=== PATIENT | female | born 1945 | race Caucasian/White ===

== ENCOUNTER 2017-06-05 10:47 | Inpatient (IN) | payer MEDICARE, OTHER ==
[2017-06-05] MEDS ORDERED: Ondansetron 4 MG/2 ML SDV IV PRN (11:32)
[2017-06-05] MEDS ORDERED: Sodium Chloride 0.9% 5 ML Syringe FLUSH PRN (11:32)
[2017-06-05] MEDS ORDERED: Nystatin Topical Powder 15 GM Bottle TOP PRN (11:39)
[2017-06-05] MEDS ORDERED: Clobetasol 0.05% Crm 30 GM Tube TOP PRN (11:39)
[2017-06-05] MEDS ORDERED: Nystatin Crm 15 GM Tube TOP PRN (11:39)
[2017-06-05] MEDS ORDERED: Docusate Sodium 100 MG Cap PO PRN (11:39)
[2017-06-05] MEDS: Acetaminophen 325 MG Tab PO PRN ×2 (12:02→18:35)
[2017-06-05 12:45] LABS: CHLORIDE,CL 99 mmol/L (98-115); SODIUM,NA 136 mmol/L (136-145)
[2017-06-05] MEDS: Sodium Chloride 0.9% 1,000 ML IV SCH (14:01)
[2017-06-05] MEDS: traMADol 50 MG Tab PO PRN (18:33)
[2017-06-05] MEDS: carBAMazepine 200 MG Tab PO SCH (21:11)
[2017-06-06] MEDS: Sodium Chloride 0.9% 1,000 ML IV SCH ×3 (00:18→19:34)
[2017-06-06] MEDS: Acetaminophen 325 MG Tab PO PRN ×3 (00:23→18:07)
[2017-06-06] MEDS: traMADol 50 MG Tab PO PRN (00:24)
[2017-06-06] MEDS: Clopidogrel 75 MG Tab PO SCH (08:07)
[2017-06-06] MEDS: Folic Acid 1 MG Tab PO SCH (08:08)
[2017-06-06] MEDS: Levothyroxine 88 MCG Tab PO SCH (08:08)
[2017-06-06] MEDS: predniSONE 5 MG Tab PO SCH (08:08)
[2017-06-06] MEDS: Escitalopram 10 MG Tab PO SCH (08:08)
[2017-06-06] MEDS: Aspirin 81 MG Tab.EC PO SCH (08:08)
[2017-06-06] MEDS: carBAMazepine 200 MG Tab PO SCH ×2 (08:08→21:08)
[2017-06-06] MEDS: Cholecalciferol (Vitamin D3) 1,000 Unit Tab PO SCH (08:08)
[2017-06-06 08:13] LABS: CHLORIDE,CL 102 mmol/L (98-115); SODIUM,NA 138 mmol/L (136-145)
[2017-06-06] MEDS ORDERED: Levothyroxine 75 MCG Tab PO SCH (09:00)
[2017-06-07] MEDS: traMADol 50 MG Tab PO PRN (01:38)
[2017-06-07] MEDS: Acetaminophen 325 MG Tab PO PRN (01:39)
[2017-06-07] MEDS: Sodium Chloride 0.9% 1,000 ML IV SCH ×2 (05:35→15:13)
[2017-06-07] MEDS: carBAMazepine 200 MG Tab PO SCH ×2 (08:22→21:14)
[2017-06-07] MEDS: Folic Acid 1 MG Tab PO SCH (08:24)
[2017-06-07] MEDS: Aspirin 81 MG Tab.EC PO SCH (08:24)
[2017-06-07] MEDS: Escitalopram 10 MG Tab PO SCH (08:24)
[2017-06-07] MEDS: Levothyroxine 88 MCG Tab PO SCH (08:24)
[2017-06-07] MEDS: Cholecalciferol (Vitamin D3) 1,000 Unit Tab PO SCH (08:25)
[2017-06-07] MEDS: predniSONE 5 MG Tab PO SCH (08:25)
[2017-06-07] MEDS: Clopidogrel 75 MG Tab PO SCH (08:25)
--- NOTE | 2017-06-07 09:05 | PN ---
06/06/2017 PATIENT NAME: MERYL LANDIN SUBJECTIVE: This is a 72-year-old female who was admitted to the hospital inpatient yesterday, June 05, 2017, for a viral gastroenteritis with dehydration and weakness. Influenza A and B were negative yesterday. CBC showed a normal white blood cell count. There was a mild shift of neutrophils, however, with a normal white count, this is likely insignificant. Complete metabolic panel showed an elevated glucose. All other values were normal. The patient is feeling somewhat better and tolerating a clear liquid diet, however, she still feels very weak. She has been running a low-grade temp of 99 to 100. She has been receiving IV hydration. No antibiotics were started since she did have a normal white blood cell count and antivirals were also withheld due to the fact that she was negative for influenza A and B. LABORATORY DATA: Lab results from today: Hemoglobin dropped a bit to 11.5, most likely due to hydration. White blood cell count continues to be normal. Her chemistries showed a low calcium of 7.6 as well as a low albumin of 2.58. The corrected calcium is 8.7, which is normal. BUN and creatinine continue to be normal with a GFR of greater than 60. Sodium and potassium are within normal limits. OBJECTIVE: VITAL SIGNS: I will insert the vital signs later. GENERAL: She still does appear weak and pale. SKIN: Warm and dry to touch. CARDIAC: Reveals S1 and S2 to be normal. Rate and rhythm are regular. No murmur, click, or gallop is auscultated. LUNGS: She has some diffuse rhonchi throughout. She does have a history of interstitial cystitis. IMAGING: Chest x-ray showed just mild edema. IMPRESSION: Viral gastroenteritis with slow improvement. We will advance her diet to a soft diet and repeat labs in the morning. She will continue on IV fluids of normal saline at 100 mL an hour. We will consider discharge tomorrow if she is feeling better. Dr. Lakia Cornelius will see her tomorrow on inpatient rounds. /[id number]/MODL
--- NOTE | 2017-06-07 09:05 | PCM.PN ---
- General Info Date of Service: 06/07/17 Admission Dx/Problem (Free Text): Dehydration secondary to gastroenteritis. - Review of Systems Systems Review Comment:: Kody is seen today on inpatient rounds. She was admitted to inpatient on from clinic due to dehydration secondary to gastroenteritis. She had been ill for nearly a week, initially with fevers (low grade) and feeling "run down" . She then developed severe vomiting and diarrhea and came to the clinic for evaluation. Labs were largely unremarkable, CXR negative. She states that she has a MCKINLEY on the left side, she is concerned it is her trigeminal neuralgia "acting up" and is wondering about increasing the dose of this medication. She has not had any more nausea since her initial dose of zofran and has not had vomiting ro diarrhea. She still feels run down but better than she felt at admission. - Patient Data Vitals - Most Recent: Last Vital Signs Temp 99.0 F 06/07/17 06:39 Pulse 74 06/07/17 06:39 Resp 22 H 06/07/17 06:39 BP 114/59 L 06/07/17 06:39 Pulse Ox 96 06/07/17 06:39 Weight - Most Recent: 179 lb 8 oz I&O - Last 24 Hours: Intake & Output 06/06/17 06/07/17 06/07/17 22:59 06:59 14:59 Intake Total 1490 935 Output Total 1000 1725 Balance 490 -790 Reilly Results Last 24 Hours: Microbiology 06/05/17 14:50 Aerobic Blood Culture - Preliminary Blood - Venous - Lab Draw NO GROWTH AFTER 1 DAY Anaerobic Blood Culture - Preliminary NO GROWTH AFTER 1 DAY 06/05/17 12:05 Aerobic Blood Culture - Preliminary Blood - Venous NO GROWTH AFTER 1 DAY Anaerobic Blood Culture - Preliminary NO GROWTH AFTER 1 DAY Med Orders - Current: Current Medications Acetaminophen (Tylenol) 325 - 650 mg PO Q4H PRN PRN Reason: Pain/Fever Last Admin: 06/07/17 01:39 Dose: 650 mg Aspirin (Halfprin) 81 mg PO DAILY [facility] Last Admin: 06/07/17 08:24 Dose: 81 mg Carbamazepine (Tegretol Tab) 400 mg PO BID [facility] Cholecalciferol (Vitamin D3) 4,000 units PO DAILY [facility] Last Admin: 06/07/17 08:25 Dose: 4,000 units Clobetasol Propionate (Clobetasol 0.05%) 0 gm TOP BID PRN PRN Reason: Itching Clopidogrel Bisulfate (Plavix) 75 mg PO DAILY [facility] Last Admin: 06/07/17 08:25 Dose: 75 mg Docusate Sodium (Colace) 100 mg PO BEDTIME PRN PRN Reason: Constipation Escitalopram Oxalate (Lexapro) 10 mg PO DAILY [facility] Last Admin: 06/07/17 08:24 Dose: 10 mg Folic Acid (Folic Acid) 1 mg PO DAILY [facility] Last Admin: 06/07/17 08:24 Dose: 1 mg Sodium Chloride (Normal Saline) 1,000 mls @ 100 mls/hr IV ASDIRECTED [facility] Last Admin: 06/07/17 05:35 Dose: 100 mls/hr Levothyroxine Sodium (Synthroid) 88 mcg PO ACBREAKFAST [facility] Last Admin: 06/07/17 08:24 Dose: 88 mcg Nystatin (Nystatin Crm) 0 gm TOP TID PRN PRN Reason: yeast Nystatin (Nystop) 0 gm TOP TID PRN PRN Reason: Itching Ondansetron HCl (Zofran) 4 mg IV Q6H PRN PRN Reason: Nausea/Vomiting Last Admin: 06/05/17 11:30 Dose: 4 mg Prednisone (Prednisone) 5 mg PO DAILY [facility] Last Admin: 06/07/17 08:25 Dose: 5 mg Ramelteon (Rozerem) 8 mg PO BEDTIME PRN PRN Reason: Sleep Sodium Chloride (Syrex Flush) 5 ml FLUSH Q8HR PRN PRN Reason: Keep Vein Open Tramadol HCl (Ultram) 50 - 100 mg PO Q6H PRN PRN Reason: Pain Last Admin: 06/07/17 01:38 Dose: 50 mg Discontinued Medications Carbamazepine (Tegretol Tab) 300 mg PO BID [facility] Last Admin: 06/07/17 08:22 Dose: 300 mg Levothyroxine Sodium (Levothyroxine) 88 mcg PO DAILY [facility] - Exam General: Alert, Oriented, Cooperative, Other (She appears tired.) Lungs: Rales (Bilateral bases.) Cardiovascular: Regular Rate, Regular Rhythm, No Murmurs - Problem List & Annotations (1) Gastroenteritis SNOMED Code(s): 76784308 Code(s): K52.9 - NONINFECTIVE GASTROENTERITIS AND COLITIS, UNSPECIFIED Status: Acute Current Visit: Yes (2) Dehydration SNOMED Code(s): 26413147 Code(s): E86.0 - DEHYDRATION Status: Acute Current Visit: Yes (3) Trigeminal neuralgia of left side of face SNOMED Code(s): 46447913 Code(s): G50.0 - TRIGEMINAL NEURALGIA Status: Acute Current Visit: Yes (4) Rheumatoid arthritis SNOMED Code(s): 84153895 Code(s): M06.9 - RHEUMATOID ARTHRITIS, UNSPECIFIED Status: Acute Current Visit: Yes - Problem List Review Problem List Initiated/Reviewed/Updated: Yes - My Orders Last 24 Hours: My Active Orders 06/07/17 09:00 carBAMazepine [TEGretol Tab] 400 mg PO BID - Assessment Assessment:: Gastroenteritis Dehydration Trigeminal neuralgia, left RA - Plan Plan:: Gastroenteritis. Continue IV fluids. Zofran PRN Dehydration. See above. Trigeminal neuralgia, left. Increase Tegretol to 400 mg PO BID. RA. Continue home meds. Recommend one more overnight stay and possible discharge to home in AM (06/08/17) .
--- NOTE | 2017-06-07 09:09 | PN ---
06/06/2017PATIENT NAME: MERYL LANDIN ADDENDUM PHYSICAL EXAMINATION: VITAL SIGNS: Temperature is 97.4, pulse is 74, respirations 16, blood pressure 110/67, oxygen saturation is 95% on 1 L of oxygen. /[id number]/MODL
[2017-06-07] MEDS ORDERED: carBAMazepine 200 MG Tab PO ONE (09:15)
[2017-06-08] MEDS: Sodium Chloride 0.9% 1,000 ML IV SCH (01:15)
[2017-06-08 05:59] VITALS: BP 150/77
[2017-06-08] MEDS: Acetaminophen 325 MG Tab PO PRN (06:07)
[2017-06-08] MEDS: Levothyroxine 88 MCG Tab PO SCH (07:51)
[2017-06-08 07:55] LABS: CHLORIDE,CL 105 mmol/L (98-115); SODIUM,NA 140 mmol/L (136-145)
[2017-06-08] MEDS: carBAMazepine 200 MG Tab PO SCH (10:13)
[2017-06-08] MEDS: Clopidogrel 75 MG Tab PO SCH (10:14)
[2017-06-08] MEDS: Escitalopram 10 MG Tab PO SCH (10:14)
[2017-06-08] MEDS: Cholecalciferol (Vitamin D3) 1,000 Unit Tab PO SCH (10:14)
[2017-06-08] MEDS: predniSONE 5 MG Tab PO SCH (10:14)
[2017-06-08] MEDS: Aspirin 81 MG Tab.EC PO SCH (10:14)
[2017-06-08] MEDS: Folic Acid 1 MG Tab PO SCH (10:14)
--- NOTE | 2017-06-10 08:24 | DISCH ---
This is a 72-year-old female who was admitted on 06/05/2017 from the [facility] for viral gastroenteritis with dehydration. She received one dose of Zofran which cleared her nausea. Admission labs were basically unremarkable. On her 2nd hospital day, 06/06/2017, she was found to have a low calcium, which corrected with her albumin. Yesterday, she did not have lab work. She continued to have her diet advanced and continued on IV fluids and has improved clinically and is ready for discharge. Lab work today showed a normal white count, it has been normal the entire time she has been hospitalized. Creatinine is low at 0.48 clinically insignificant. Glucose is 117. Calcium is 8.2 today, which is improved from 7.6 the other day. We did not get an albumin today, however, I am sure this calcium corrects with that. Her nutritional status has improved considerably since her admission. We did hold her hydrochlorothiazide due to the fact that one week prior to admission, she was hypokalemic and we did replace that orally, which improved her potassium within a normal range. We have held it in the hospital due to hypotension, however, now that she is rehydrated, her blood pressure has been creeping up to 168/87, 150/77. She will resume taking the hydrochlorothiazide. PHYSICAL EXAMINATION: VITAL SIGNS: On exam today, vital signs are temperature of 99.2, pulse 90, respirations 14, blood pressure 150/77. Her O2 saturation is 91%. She does use oxygen on a p.r.n. basis at home. SKIN: Warm and dry to touch. CARDIAC: Reveals S1, S2 to be normal. Rate and rhythm are regular. No murmur, click, or gallop is auscultated. LUNGS: She does have some coarse rhonchi throughout her lungs, however, this is probably secondary to interstitial cystitis. ABDOMEN: Soft, nontender. Bowel sounds present in all four quadrants. EXTREMITIES: There is no pedal edema. IMPRESSION: 1. Viral gastroenteritis. This is improved to the point where the patient is able to be discharged home. 2. Trigeminal neuralgia. She did complain of increased pain of the left-sided trigeminal neuralgia. Her PCP, Lakia Cornelius saw her yesterday on rounds and did increase her Tegretol, carbamazepine (to 400 mg b.i.d.). This change has been communicated to the pharmacy. 3. Hypertension. Hydrochlorothiazide was held due to hypotension, however, this will be restarted and has been communicated in her discharge instructions. 4. Rheumatoid arthritis. This is stable on daily steroid therapy. She is also on folic acid supplementation. She will follow up in the clinic next week. She did request a refill on her Cheratussin, which she was taking for a cough. This was communicated to the pharmacy and they will actually deliver it to her home today. She will call the clinic or hospital if she has any problems prior to her followup appointment. /[id number]/MODL
== END 2017-06-08 12:40 | disposition home or self-care (01) | DRG 392 ==
LOC: KA.MS 10:47
DX: A08.4 Viral intestinal infection, unspecified (principal); J84.9 Interstitial pulmonary disease, unspecified; E86.0 Dehydration; G50.0 Trigeminal neuralgia; I10 Essential (primary) hypertension; M06.9 Rheumatoid arthritis, unspecified; E03.9 Hypothyroidism, unspecified; F32.9 Major depressive disorder, single episode, unspecified; E55.9 Vitamin D deficiency, unspecified; Z88.8 Allergy status to other drugs, medicaments and biological substances; Z79.899 Other long term (current) drug therapy
CPT/HCPCS: 36415; 71046; 80048; 80053; 85025; 87040; 87804; A9270-GY; J2405; J7030

== ENCOUNTER 2023-04-11 06:18 | Inpatient (IN) | payer MEDICARE, OTHER ==
[2023-04-11 08:05] LABS: INFLUENZA A NAA NEGATIVE (NEGATIVE); INFLUENZA B NAA NEGATIVE (NEGATIVE); RESPIRATORY SYNCYTIAL VIR NAA NEGATIVE (NEGATIVE)
[2023-04-11 08:06] LABS: CORONAVIRUS COVID-19 NAA POSITIVE (NEGATIVE)
[2023-04-11] MEDS ORDERED: Acetaminophen 500 MG Tab PO ONE (08:39)
[2023-04-11 09:21] LABS: BASOPHILS ABSOLUTE AUTO 0.03 10^3/uL (0.00-0.10); BASOPHILS PERCENT AUTO 0.3 % (0.0-1.0); EOSINOPHILS ABSOLUTE AUTO 0.03 10^3/uL (0.10-0.30); EOSINOPHILS PERCENT AUTO 0.3 % (1.0-3.0); HEMATOCRIT 43.1 % (37.0-47.0); HEMOGLOBIN 14.2 g/dL (12.0-16.0); IMMATURE GRAN ABSOLUTE AUTO 0.02 10^3/uL (0.00-0.50); IMMATURE GRAN PERCENT AUTO 0.2 % (0.0-5.0); LYMPHOCYTES ABSOLUTE AUTO 1.16 10^3/uL (1.00-4.00); LYMPHOCYTES PERCENT AUTO 12.5 % (20.0-40.0); MEAN CORPUSCULAR HEMOGLOBIN 29.6 pg (27.0-31.0); MEAN CORPUSCULAR HGB CONC 32.9 g/dL (32.0-36.0); MEAN PLATELET VOLUME 11.2 fL (7.4-10.4); MONOCYTES ABSOLUTE AUTO 1.36 10^3/uL (0.10-0.80); MONOCYTES PERCENT AUTO 14.6 % (2.0-8.0); NEUTROPHILS PERCENT AUTO 72.1 % (50.0-70.0); PLATELET COUNT,PLT 170 10^3/uL (150-400); RED BLOOD CELL COUNT 4.79 10^6/uL (3.80-5.50); RED CELL DISTRIBUTION WIDTH 12.7 % (11.5-14.5)
[2023-04-11 09:36] LABS: ALBUMIN 3.11 g/dL (3.40-5.00); ANION GAP 12.7 mmol/L (5-15); BILIRUBIN TOTAL 0.3 mg/dL (0.2-1.0); CALCIUM 8.2 mg/dL (8.7-10.3); CARBON DIOXIDE,CO2 30.3 mmol/L (21.0-32.0); CREATININE 0.53 mg/dL (0.51-1.17); EST CRCL DRUG DOSING (CG) 70.03 mL/min; PROTEIN TOTAL,TP 6.5 g/dL (6.4-8.2)
[2023-04-11] MEDS ORDERED: traMADol 50 MG Tab PO PRN (12:30)
[2023-04-11] MEDS ORDERED: Albuterol/Ipratropium 3.0-0.5 MG/3 ML Neb Soln NEB PRN (12:30)
[2023-04-11] MEDS ORDERED: Ondansetron 4 MG/2 ML SDV IV PRN (12:30)
[2023-04-11] MEDS ORDERED: NS with KCl 40mEq 500 ML IV SCH (13:00)
[2023-04-11] MEDS ORDERED: REMDESIVIR 200 MG in Sodium Chloride 0.9% 100 ML IV ONE ×2 (13:00→13:55)
[2023-04-11] MEDS ORDERED: Omeprazole 20 MG Cap.CR PO SCH (13:00)
[2023-04-11] MEDS ORDERED: Potassium Chloride 20 MEQ Tab.ER PO ONE (13:00)
[2023-04-11] MEDS: Dexamethasone 4 MG/ML 5 ML MDV IVPUSH SCH (13:47)
[2023-04-11] MEDS: Levothyroxine 25 MCG Tab PO SCH (13:50)
[2023-04-11] MEDS: metFORMIN 500 MG Tab PO SCH ×2 (13:51→17:56)
[2023-04-11] MEDS: Levothyroxine 100 MCG Tab PO SCH (13:51)
[2023-04-11] MEDS: Clopidogrel 75 MG Tab PO SCH (13:51)
[2023-04-11] MEDS: Aspirin 81 MG Tab.EC PO SCH (13:52)
[2023-04-11] MEDS: Escitalopram 10 MG Tab PO SCH (13:53)
[2023-04-11] MEDS: Omeprazole 20 MG Cap.CR PO SCH (13:57)
[2023-04-11] MEDS: Enoxaparin 40 MG/0.4 ML Syringe SUBCUT SCH (14:01)
[2023-04-11] MEDS ORDERED: OXCARBAZEPINE 300 MG PO SCH (21:00)
[2023-04-12] MEDS: Levothyroxine 100 MCG Tab PO SCH ×2 (06:21→06:32)
[2023-04-12] MEDS: Levothyroxine 25 MCG Tab PO SCH ×2 (06:22→06:32)
[2023-04-12 07:18] LABS: BASOPHILS ABSOLUTE AUTO 0.02 10^3/uL (0.00-0.10); BASOPHILS PERCENT AUTO 0.2 % (0.0-1.0); HEMATOCRIT 42.2 % (37.0-47.0); HEMOGLOBIN 13.8 g/dL (12.0-16.0); IMMATURE GRAN ABSOLUTE AUTO 0.04 10^3/uL (0.00-0.50); IMMATURE GRAN PERCENT AUTO 0.4 % (0.0-5.0); LYMPHOCYTES ABSOLUTE AUTO 1.25 10^3/uL (1.00-4.00); LYMPHOCYTES PERCENT AUTO 11.4 % (20.0-40.0); MEAN CORPUSCULAR HEMOGLOBIN 30.1 pg (27.0-31.0); MEAN CORPUSCULAR HGB CONC 32.7 g/dL (32.0-36.0); MEAN CORPUSCULAR VOLUME 91.9 fL (82.0-92.0); MEAN PLATELET VOLUME 11.2 fL (7.4-10.4); MONOCYTES ABSOLUTE AUTO 1.28 10^3/uL (0.10-0.80); MONOCYTES PERCENT AUTO 11.7 % (2.0-8.0); NEUTROPHILS ABSOLUTE AUTO 8.33 10^3/uL (2.50-7.00); NEUTROPHILS PERCENT AUTO 76.3 % (50.0-70.0); PLATELET COUNT,PLT 173 10^3/uL (150-400); RED BLOOD CELL COUNT 4.59 10^6/uL (3.80-5.50); RED CELL DISTRIBUTION WIDTH 12.8 % (11.5-14.5); WHITE BLOOD CELL COUNT,WBC 10.92 10^3/uL (5.00-10.00)
[2023-04-12 07:26] LABS: ALBUMIN 2.96 g/dL (3.40-5.00); ANION GAP 9.7 mmol/L (5-15); BILIRUBIN TOTAL 0.2 mg/dL (0.2-1.0); CALCIUM 8.8 mg/dL (8.7-10.3); CARBON DIOXIDE,CO2 31.5 mmol/L (21.0-32.0); CREATININE 0.61 mg/dL (0.51-1.17); EST CRCL DRUG DOSING (CG) 60.85 mL/min; POTASSIUM,K 4.2 mmol/L (3.5-5.1); PROTEIN TOTAL,TP 6.4 g/dL (6.4-8.2)
[2023-04-12] MEDS: Omeprazole 20 MG Cap.CR PO SCH (08:04)
[2023-04-12] MEDS: Dexamethasone 4 MG/ML 5 ML MDV IVPUSH SCH (08:04)
[2023-04-12] MEDS: Clopidogrel 75 MG Tab PO SCH (08:05)
[2023-04-12] MEDS: metFORMIN 500 MG Tab PO SCH ×2 (08:05→17:57)
[2023-04-12] MEDS: Aspirin 81 MG Tab.EC PO SCH (08:05)
[2023-04-12] MEDS: Escitalopram 10 MG Tab PO SCH (08:05)
[2023-04-12] MEDS: Acetaminophen 325 MG Tab PO PRN ×2 (08:11→21:50)
[2023-04-12] MEDS: REMDESIVIR 100 MG in Sodium Chloride 0.9% 100 ML IV SCH (13:01)
[2023-04-12] MEDS: Enoxaparin 40 MG/0.4 ML Syringe SUBCUT SCH (13:01)
[2023-04-13] MEDS: Levothyroxine 100 MCG Tab PO SCH ×2 (06:14→06:33)
[2023-04-13] MEDS: Levothyroxine 25 MCG Tab PO SCH ×2 (06:14→06:33)
[2023-04-13 07:43] LABS: BASOPHILS ABSOLUTE AUTO 0.02 10^3/uL (0.00-0.10); BASOPHILS PERCENT AUTO 0.1 % (0.0-1.0); EOSINOPHILS ABSOLUTE AUTO 0.01 10^3/uL (0.10-0.30); EOSINOPHILS PERCENT AUTO 0.1 % (1.0-3.0); HEMATOCRIT 45.9 % (37.0-47.0); HEMOGLOBIN 14.8 g/dL (12.0-16.0); IMMATURE GRAN ABSOLUTE AUTO 0.04 10^3/uL (0.00-0.50); IMMATURE GRAN PERCENT AUTO 0.3 % (0.0-5.0); LYMPHOCYTES ABSOLUTE AUTO 1.37 10^3/uL (1.00-4.00); LYMPHOCYTES PERCENT AUTO 9.1 % (20.0-40.0); MEAN CORPUSCULAR HEMOGLOBIN 29.9 pg (27.0-31.0); MEAN CORPUSCULAR HGB CONC 32.2 g/dL (32.0-36.0); MEAN CORPUSCULAR VOLUME 92.7 fL (82.0-92.0); MEAN PLATELET VOLUME 11.1 fL (7.4-10.4); MONOCYTES ABSOLUTE AUTO 1.42 10^3/uL (0.10-0.80); MONOCYTES PERCENT AUTO 9.5 % (2.0-8.0); NEUTROPHILS ABSOLUTE AUTO 12.15 10^3/uL (2.50-7.00); NEUTROPHILS PERCENT AUTO 80.9 % (50.0-70.0); PLATELET COUNT,PLT 195 10^3/uL (150-400); RED BLOOD CELL COUNT 4.95 10^6/uL (3.80-5.50); RED CELL DISTRIBUTION WIDTH 12.8 % (11.5-14.5); WHITE BLOOD CELL COUNT,WBC 15.01 10^3/uL (5.00-10.00)
[2023-04-13] MEDS: Escitalopram 10 MG Tab PO SCH (08:00)
[2023-04-13] MEDS: Clopidogrel 75 MG Tab PO SCH (08:00)
[2023-04-13] MEDS: Dexamethasone 4 MG/ML 5 ML MDV IVPUSH SCH (08:00)
[2023-04-13] MEDS: metFORMIN 500 MG Tab PO SCH ×2 (08:00→18:05)
[2023-04-13] MEDS: Omeprazole 20 MG Cap.CR PO SCH (08:00)
[2023-04-13 08:02] LABS: ALBUMIN 3.03 g/dL (3.40-5.00); ANION GAP 9.3 mmol/L (5-15); BILIRUBIN TOTAL 0.3 mg/dL (0.2-1.0); CALCIUM 8.6 mg/dL (8.7-10.3); CARBON DIOXIDE,CO2 32.4 mmol/L (21.0-32.0); CREATININE 0.64 mg/dL (0.51-1.17); EST CRCL DRUG DOSING (CG) 57.99 mL/min; POTASSIUM,K 3.7 mmol/L (3.5-5.1); PROTEIN TOTAL,TP 6.7 g/dL (6.4-8.2)
[2023-04-13] MEDS: Aspirin 81 MG Tab.EC PO SCH (08:02)
[2023-04-13] MEDS ORDERED: Labetalol 100 MG/20 ML MDV IVPUSH PRN (11:15)
[2023-04-13] MEDS: REMDESIVIR 100 MG in Sodium Chloride 0.9% 100 ML IV SCH (12:38)
[2023-04-13] MEDS: Enoxaparin 40 MG/0.4 ML Syringe SUBCUT SCH (12:38)
[2023-04-13] MEDS ORDERED: Sodium Chloride 0.9% 250 ML IV SCH (17:45)
[2023-04-13] MEDS: Acetaminophen 325 MG Tab PO PRN (22:13)
[2023-04-14] MEDS: Levothyroxine 100 MCG Tab PO SCH (06:37)
[2023-04-14] MEDS: Levothyroxine 25 MCG Tab PO SCH (06:37)
[2023-04-14] MEDS: Omeprazole 20 MG Cap.CR PO SCH (08:02)
[2023-04-14] MEDS: Escitalopram 10 MG Tab PO SCH (08:02)
[2023-04-14] MEDS: Aspirin 81 MG Tab.EC PO SCH (08:02)
[2023-04-14] MEDS: metFORMIN 500 MG Tab PO SCH ×2 (08:02→17:52)
[2023-04-14] MEDS: Clopidogrel 75 MG Tab PO SCH (08:02)
[2023-04-14] MEDS: Dexamethasone 4 MG/ML 5 ML MDV IVPUSH SCH (08:02)
[2023-04-14 08:14] LABS: ALBUMIN 2.95 g/dL (3.40-5.00); ANION GAP 9.6 mmol/L (5-15); BILIRUBIN TOTAL 0.4 mg/dL (0.2-1.0); CALCIUM 8.5 mg/dL (8.7-10.3); CARBON DIOXIDE,CO2 32.8 mmol/L (21.0-32.0); CREATININE 0.64 mg/dL (0.51-1.17); EST CRCL DRUG DOSING (CG) 57.99 mL/min; POTASSIUM,K 3.4 mmol/L (3.5-5.1); PROTEIN TOTAL,TP 6.5 g/dL (6.4-8.2)
[2023-04-14] MEDS ORDERED: Potassium Chloride 20 MEQ Tab.ER PO ONE (11:32)
[2023-04-14] MEDS: REMDESIVIR 100 MG in Sodium Chloride 0.9% 100 ML IV SCH (12:02)
[2023-04-14] MEDS: Enoxaparin 40 MG/0.4 ML Syringe SUBCUT SCH (12:02)
[2023-04-14] MEDS: Acetaminophen 325 MG Tab PO PRN (21:50)
[2023-04-15] MEDS: Levothyroxine 100 MCG Tab PO SCH ×2 (06:22→07:37)
[2023-04-15] MEDS: Levothyroxine 25 MCG Tab PO SCH ×2 (06:22→07:01)
[2023-04-15 07:39] LABS: ALBUMIN 2.7 g/dL (3.40-5.00); BILIRUBIN TOTAL 0.3 mg/dL (0.2-1.0); CALCIUM 8.7 mg/dL (8.7-10.3); CARBON DIOXIDE,CO2 32.8 mmol/L (21.0-32.0); CREATININE 0.52 mg/dL (0.51-1.17); EST CRCL DRUG DOSING (CG) 71.38 mL/min; POTASSIUM,K 3.8 mmol/L (3.5-5.1); PROTEIN TOTAL,TP 6.2 g/dL (6.4-8.2)
[2023-04-15] MEDS: Clopidogrel 75 MG Tab PO SCH (08:06)
[2023-04-15] MEDS: metFORMIN 500 MG Tab PO SCH (08:06)
[2023-04-15] MEDS: Escitalopram 10 MG Tab PO SCH (08:06)
[2023-04-15] MEDS: Aspirin 81 MG Tab.EC PO SCH (08:06)
[2023-04-15] MEDS: Omeprazole 20 MG Cap.CR PO SCH (08:07)
[2023-04-15] MEDS: Dexamethasone 4 MG/ML 5 ML MDV IVPUSH SCH (08:07)
[2023-04-15] MEDS: Enoxaparin 40 MG/0.4 ML Syringe SUBCUT SCH (13:05)
[2023-04-15] MEDS: REMDESIVIR 100 MG in Sodium Chloride 0.9% 100 ML IV SCH (13:11)
[2023-04-15 14:18] VITALS: BP 127/64; PULSE 63
[2023-04-16] MEDS ORDERED: Dexamethasone 4 MG/ML SDV IVPUSH SCH (09:00)
== END 2023-04-15 14:50 | disposition home or self-care (01) | DRG 177 ==
LOC: KA.ED 06:18 → KA.MS 09:22
PROVIDERS: ADMIT Internal Medicine; ATTEND Internal Medicine
PROC: 8E0ZXY6 Isolation (ICD-10-PCS; principal; 2023-04-11)
PROC: XW033E5 Introduction of Remdesivir Anti-infective into Peripheral Vein, Percutaneous Approach, New Technology Group 5 (ICD-10-PCS; 2023-04-11)
PROC: 3E0DX3Z Introduction of Anti-inflammatory into Mouth and Pharynx, External Approach (ICD-10-PCS; 2023-04-11)
DX: U07.1 COVID-19 (principal); J12.82 Pneumonia due to coronavirus disease 2019; J96.21 Acute and chronic respiratory failure with hypoxia; R09.02 Hypoxemia; J84.9 Interstitial pulmonary disease, unspecified; D84.9 Immunodeficiency, unspecified; K59.09 Other constipation; F32.A Depression, unspecified; F41.9 Anxiety disorder, unspecified; E78.00 Pure hypercholesterolemia, unspecified; K21.9 Gastro-esophageal reflux disease without esophagitis; E03.9 Hypothyroidism, unspecified; I10 Essential (primary) hypertension; Z96.659 Presence of unspecified artificial knee joint; M06.9 Rheumatoid arthritis, unspecified; E11.9 Type 2 diabetes mellitus without complications; Z79.4 Long term (current) use of insulin; Z97.3 Presence of spectacles and contact lenses; Z88.2 Allergy status to sulfonamides; Z88.8 Allergy status to other drugs, medicaments and biological substances; Z86.16 Personal history of COVID-19; Z98.42 Cataract extraction status, left eye; Z98.41 Cataract extraction status, right eye; Z98.890 Other specified postprocedural states; Z99.81 Dependence on supplemental oxygen; Z90.89 Acquired absence of other organs; Z79.84 Long term (current) use of oral hypoglycemic drugs; Z79.82 Long term (current) use of aspirin; Z79.899 Other long term (current) drug therapy; Z86.73 Personal history of transient ischemic attack (TIA), and cerebral infarction without residual deficits
CPT/HCPCS: 0241U; 36415; 71045; 80053; 85025; 99223-GT; 99232-GT; 99233-GT; 99239-GT; 99284; 99285; A9270-GY; J0248; J1100; J1650; J3480; J3490; J7050; Q3014